=== PATIENT | male | born 1995 | race Caucasian/White ===

== ENCOUNTER 2019-07-17 07:29 | Emergency (ER) | payer SELFPAY ==
[2019-07-17] MEDS ORDERED: SODIUM CHLORIDE 0.9% 1000ML 1,000 ML IVS PRN (07:34)
[2019-07-17] MEDS ORDERED: SODIUM CHLORIDE 0.9% (FLUSH) 10 ML SYG IV PRN (07:34)
--- NOTE | 2019-07-17 07:38 | ED.PDOC ---
History of Present Illness - General Chief Complaint: Drug or Alcohol Abuse Time Seen by Provider: 07/17/19 07:31 - History of Present Illness Initial Comments: Pt is a 23 yo male who presents via EMS for possible substance abuse. PD at bedside states he was in his brothers backyard this morning in his underwear and family called EMS. Family reports h/o methamphetamine abuse. Pt has hyper baptist speech and continues to say "I am Lord. I pray for you." He does not answer any questions or give any further history. Mother is at bedside and states he has no PMH. He has had episodes similar to this due to methamphetamine use. Allergies/Adverse Reactions: Allergies NO KNOWN ALLERGY Allergy (Verified 07/17/19 07:40) Home Medications: Ambulatory Orders NK 07/17/19 Review of Systems - Review of Systems Unable to Obtain Due To: condition - Altered mental state Family Medical History - Family History Father Family History: No Known Living Status: Still Living Physical Exam - Physical Exam General Appearance: Agitated, Other - Combative, hyper baptist speech Eye Exam: bilateral normal - PERRL Ears, Nose, Throat: other - Dry oral mucosa Neck: non-tender, full range of motion, supple Respiratory: chest non-tender, lungs clear, normal breath sounds, no respiratory distress, no accessory muscle use Cardiovascular/Chest: normal peripheral pulses, no edema, no murmur, tachycardia Gastrointestinal/Abdominal: non tender, soft, no pulsatile mass Back Exam: normal inspection, no CVA tenderness, no vertebral tenderness Extremity: normal range of motion, non-tender, normal inspection, no pedal edema Neurologic: other - Hyper baptist speech, moves all extremities, non cooperative Skin Exam: normal color, warm/dry Progress - Progress Progress: 07/17/19 07:50 Pt combative. Yelling hyper baptist speech. Will give Haldol and Ativan and observe. EKG at 0744. Sinus tachycardia, rate 130, normal intervals, nonspecific ST abnormality 07/17/19 07:58 Pt with paranoid speech. Yelling at family at bedside stating they are trying to kill him. He was given water and thins it was poison. 07/17/19 09:09 Pt resting comfortably. Awakens to voice, then falls back to sleep. Tachycardia has resolved. Mother at bedside. On labs, potassium is 2.2. I think this is due to dehydration and poor po nutritional intake. IV and po potassium ordered. Tox screen shows + Meth and Marijuana. Will get repeat K+ after potassium given. PD at bedside as patient is in police custody. 07/17/19 12:43 repeat potassium is 3.7. Pt now calm and alert. He is in custody of PD. Mother and brother at bedside. Pt is medically [facility] and will be MN'ed in custody of PD. - Results/Orders Results/Orders: 07/17/19 07:34 IV Care:Saline Lock per Protoc QSHIFT Telemetry Q4H Sodium Chloride 0.9% (Flush) [Saline Flush Syringe] 10 ml IV PRN PRN Sodium Chloride 0.9% 1000ML [Ns 1000 ml] 1,000 ml IVS .QD 07/17/19 07:45 EKG STAT 07/17/19 08:02 KCl 40 Meq/Water For Inj 100Ml [Potassium 40meq in Water 100ml] 40 meq Premix Bag 1 bag IVPB ONCE 07/17/19 08:05 Restraint:Non-Violent,Initial ONCE Restraint:Non-Violent;On-Going Q2H Laboratory Results - last 24 hr 07/17/19 07/17/19 07/17/19 07:20 07:20 07:20 WBC 12.2 H RBC 5.64 Hgb 17.1 Hct 50.1 MCV 88.9 MCH 30.4 MCHC 34.1 RDW 12.2 Plt Count 338 MPV 7.5 Absolute Neuts (auto) 9.10 H Absolute Lymphs (auto) 2.00 Absolute Monos (auto) 0.90 H Absolute Eos (auto) 0.10 Absolute Basos (auto) 0.10 Neutrophils % 74.5 Lymphocytes % 16.7 L Monocytes % 7.4 Eosinophils % 0.9 L Basophils % 0.5 Sodium 139 Potassium 2.2 L* Chloride 98 L Carbon Dioxide 23 Anion Gap 20.2 H BUN 14 Creatinine 1.23 BUN/Creatinine Ratio 11.4 Random Glucose 162 H Serum Osmolality 281.5 Calcium 9.3 Total Bilirubin 1.0 AST 40 ALT 15 Alkaline Phosphatase 74 Troponin I Serum Total Protein 8.3 H Albumin 4.9 Globulin 3.4 Albumin/Globulin Ratio 1.4 Urine Color Urine Appearance Urine pH Ur Specific [place] Urine Protein Urine Glucose (UA) Urine Ketones Urine Blood Urine Nitrite Urine Bilirubin Urine Urobilinogen Ur Leukocyte Esterase Urine RBC Urine WBC Ur Epithelial Cells Ur Transition Epith Cell Ur Renal Epithelial Cell Amorphous Sediment Urine Bacteria Hyaline Casts Fine Granular Casts Salicylates < 4.0 Urine Opiates Screen Acetaminophen < 10.0 L Urine Barbiturates Ur Phencyclidine Scrn U Amphetamin/Meth Scrn U Benzodiazepines Scrn U Cocaine Metab Screen U Cannabinoids Screen Ethyl Alcohol < 5.40 07/17/19 07/17/19 07/17/19 07:20 08:30 08:30 WBC RBC Hgb Hct MCV MCH MCHC RDW Plt Count MPV Absolute Neuts (auto) Absolute Lymphs (auto) Absolute Monos (auto) Absolute Eos (auto) Absolute Basos (auto) Neutrophils % Lymphocytes % Monocytes % Eosinophils % Basophils % Sodium Potassium Chloride Carbon Dioxide Anion Gap BUN Creatinine BUN/Creatinine Ratio Random Glucose Serum Osmolality Calcium Total Bilirubin AST ALT Alkaline Phosphatase Troponin I < 0.02 Serum Total Protein Albumin Globulin Albumin/Globulin Ratio Urine Color [place] Urine Appearance Sl cloudy Urine pH 6.0 Ur Specific [place] >= 1.030 Urine Protein 100 H Urine Glucose (UA) Negative Urine Ketones 15 H Urine Blood Trace-intact H Urine Nitrite Negative Urine Bilirubin Moderate Urine Urobilinogen 1.0 Ur Leukocyte Esterase Negative Urine RBC 3-5 H Urine WBC 0-1 Ur Epithelial Cells 1-3 Ur Transition Epith Cell 0-1 Ur Renal Epithelial Cell 1-3 Amorphous Sediment 2+ Urine Bacteria Rare Hyaline Casts 0-1 Fine Granular Casts 0-1 Salicylates Urine Opiates Screen Negative Acetaminophen Urine Barbiturates Negative Ur Phencyclidine Scrn Negative U Amphetamin/Meth Scrn Positive H U Benzodiazepines Scrn Negative U Cocaine Metab Screen Negative U Cannabinoids Screen Positive H Ethyl Alcohol 07/17/19 12:00 WBC RBC Hgb Hct MCV MCH MCHC RDW Plt Count MPV Absolute Neuts (auto) Absolute Lymphs (auto) Absolute Monos (auto) Absolute Eos (auto) Absolute Basos (auto) Neutrophils % Lymphocytes % Monocytes % Eosinophils % Basophils % Sodium 141 Potassium 3.7 Chloride 110 Carbon Dioxide 21 Anion Gap 13.7 BUN 14 Creatinine 0.90 BUN/Creatinine Ratio 15.6 Random Glucose 80 Serum Osmolality 280.7 Calcium 8.1 L Total Bilirubin AST ALT Alkaline Phosphatase Troponin I Serum Total Protein Albumin Globulin Albumin/Globulin Ratio Urine Color Urine Appearance Urine pH Ur Specific [place] Urine Protein Urine Glucose (UA) Urine Ketones Urine Blood Urine Nitrite Urine Bilirubin Urine Urobilinogen Ur Leukocyte Esterase Urine RBC Urine WBC Ur Epithelial Cells Ur Transition Epith Cell Ur Renal Epithelial Cell Amorphous Sediment Urine Bacteria Hyaline Casts Fine Granular Casts Salicylates Urine Opiates Screen Acetaminophen Urine Barbiturates Ur Phencyclidine Scrn U Amphetamin/Meth Scrn U Benzodiazepines Scrn U Cocaine Metab Screen U Cannabinoids Screen Ethyl Alcohol Departure - Departure Clinical Impression: Methamphetamine abuse, Hypokalemia Altered mental state Qualifiers: Altered mental status type: transient alteration of awareness Qualified Code(s): R40.4 - Transient alteration of awareness Time of Disposition: 12:45 Disposition: Senior Living Condition: Good Departure Forms: ED Discharge - Pt. Copy, Patient Portal Self Enrollment Instructions: DI for Drug Overdose in Adults Diet: resume usual diet Activity: walking as tolerated Home Medications: Ambulatory Orders NK 07/17/19
[2019-07-17] MEDS ORDERED: HALOPERIDOL LACTATE INJ 5 MG/ML VIAL IM ONE (07:48)
[2019-07-17] MEDS ORDERED: HALOPERIDOL LACTATE INJ 5 MG/ML VIAL ONE (07:48)
[2019-07-17] MEDS ORDERED: KCL 40 MEQ/WATER FOR INJ 100ML 40 MEQ in PREMIX BAG 1 BAG IVPB ONE (08:02)
[2019-07-17] MEDS ORDERED: KCL 40 MEQ/WATER FOR INJ 100ML 100 ML IVPB ONE (08:17)
[2019-07-17] MEDS ORDERED: POTASSIUM CHLORIDE 20 MEQ TAB PO ONE (08:27)
[2019-07-17] MEDS ORDERED: SODIUM CHLORIDE 0.9% 1000ML 1,000 ML IVS ONE (09:11)
[2019-07-17 14:49] VITALS: BP 126/74; TEMP 98.2; O2SAT 99
== END 2019-07-17 13:16 ==
LOC: ER 07:29
DX: F15.10 Other stimulant abuse, uncomplicated (principal); E87.6 Hypokalemia; R40.4 Transient alteration of awareness; R00.0 Tachycardia, unspecified; F12.90 Cannabis use, unspecified, uncomplicated
CPT/HCPCS: 36415; 80048; 80053; 80307; 80320; 80329; 81001; 84484; 85025; 93005; J1630; J2060; J3480; J7030